=== PATIENT | female | born 1990 | race African-American/Black ===

== ENCOUNTER 2016-06-27 06:46 | Emergency (ER) | payer SELFPAY ==
[2016-06-27 07:02] VITALS: TEMP 98.5; BMI 20.3
[2016-06-27] MEDS ORDERED: DIPHTHERIA AND TETANUS (ADULT) 0.5 ML SYR IM ONE (07:05)
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
[2016-06-27] MEDS ORDERED: ALPRAZOLAM 0.25 MG TAB PO ONE (07:20)
[2016-06-27] MEDS ORDERED: 2-OCTYL CYANOACRYLATE PEN TOP ONE (08:18)
[2016-06-27 09:16] VITALS: BP 122/72; PULSE 74
== END 2016-06-27 09:15 | disposition home or self-care (01) ==
LOC: ED 06:46
DX: S01.81XA Laceration without foreign body of other part of head, initial encounter (principal); X99.1XXA Assault by knife, initial encounter; Y93.9 Activity, unspecified; Z23 Encounter for immunization
CPT/HCPCS: 12013; 90714; 99283; J3490